=== PATIENT | male | born 2005 | race Caucasian/White ===

== ENCOUNTER 2024-03-30 06:43 | Emergency (ER) | payer BC, SELFPAY ==
[2024-03-30 06:47] VITALS: BP 98/52
--- NOTE | 2024-03-30 07:46 | ED.GENMED ---
History of Present Illness
General
Chief Complaint: Skin Surface Trauma
Time Seen by Provider: 03/30/24 07:12
History of Present Illness
History of Present Illness:
19-year-old male presents to the emergency department for evaluation of left anterior lower leg laceration sustained during a workout this morning, he slipped while performing a box jump and struck his leg on the corner of the box. Bleeding is now
controlled. Last tetanus is up-to-date
Review of Systems
Review of Systems
Allergies reviewed?: Yes
All Other Systems: ROS reviewed and negative except as documented in HPI and ROS
Phy Exam
Physical Exam
Physical Exam:
GEN: Well appearing, NAD, WDWN
HEENT: Oral mucosa moist, no scleral icterus
Cardiac: Regular rate
Lung: No respiratory distress, no tachypnea
MSK: No gross deformity or injuries. 5 cm linear laceration to the anterior midshaft left lower leg, exposed osseous tissue, normal range of motion at the left ankle
Skin: Good color, no pallor or jaundice, no rashes
Neuro: AO x3, moves all extremities freely
Psych: Calm, cooperative
Course
Vital Signs
Initial and Last Documented VS:
Initial Vital Signs
Temp Pulse Resp BP Pulse Ox
97.9 F 84 16 98/52 99
03/30/24 06:47 03/30/24 06:47 03/30/24 06:47 03/30/24 06:47 03/30/24 06:47
Last Documented Vital Signs
Temp Pulse Resp BP Pulse Ox
97.9 F 84 16 98/52 99
03/30/24 06:47 03/30/24 06:47 03/30/24 06:47 03/30/24 06:47 03/30/24 06:47
Procedures
Laceration Closure
Left Lower Leg:
Status of Wound: clean
Size of Wound in cm: 5
Description of Wound Edges: sharp
Preparation: cleaned with saline
Anesthesia: 1% Lidocaine with epi
Revision/Debridement: routine- no revision
Wound exploration: explored to base- no FB and no tendon involvement
Type of Closure: single layer closure
Skin Closure Material: other (3-0 prolene)
Number of sutures: 6
MDM/Problems Addressed
MDM/Problems Addressed:
No indication for x-rays, no foreign bodies identified. Wound irrigated copiously and closed at the bedside. Discussed supportive care
*Critical Care Note
Total Time (30-74mins, 75-104mins- exclusive of procedures): Not Applicable
ED Attending Note
-
Portions of this chart may have been created with voice recognition software.� Occasional wrong word or��sound alike� substitutions may have occurred due to the inherent limitations of voice recognition software.
Discharge Plan
Departure
Patient Disposition: Home (Routine Discharge)
Date of Disposition: 03/30/24
Time of Disposition: 07:46
Patient with high blood pressure during this ER visit?: No
Discharge Problem:
Laceration of left leg
Instructions: Laceration Repair With Stitches (DC)
Activity Restrictions/Additional Instructions:
Keep dry for 24 hours, then you may wash gently with soap and water
Keep wound covered at all times until suture removal in 10-14 days. Change dressing each day
Avoid strenuous activity for 48 hours. You may resume light activity for 2-3 days thereafter
Return to the ER if you develop any redness, swelling, pain or white/green/foul smelling drainage from the site
Interventions
Interventions:
*Risk Screen - Suicide Last Done: 03/30/24 06:48
*Neglect/Abuse Screening Last Done: 03/30/24 06:48
*Nursing Disposition Last Done: 03/30/24 08:10
ED-Skin Assessment Last Done: 03/30/24 08:08
Discharge Date and Time
Discharge Date/Time: 03/30/24 08:10
Print Language: NIUEAN
== END 2024-03-30 08:10 | disposition home or self-care (01) ==
LOC: EMR 06:43
PROVIDERS: EMERGENCY PHYSICIAN Emergency Medicine
DX: S81.812A Laceration without foreign body, left lower leg, initial encounter (principal); W22.09XA Striking against other stationary object, initial encounter
CPT/HCPCS: 99282; 12002